=== PATIENT | male | born 1975 | race Caucasian/White ===

== ENCOUNTER 2018-01-05 02:58 | Observation (INO) | payer MEDICAID ==
[~2018-01-05] VITALS: Ht 190.5 cm; Wt 113.0 kg
[2018-01-05] MEDS ORDERED: SODIUM CHLORIDE FLUSH 10ML SYR IVF ONE (03:30)
[2018-01-05] MEDS ORDERED: ASPIRIN 81 MG TABLET CHEW PO ONE (03:30)
[2018-01-05] MEDS ORDERED: MORPHINE SULFATE 4 MG/ML, 1ML IVPush PRN (03:30)
[2018-01-05] MEDS ORDERED: MORPHINE SULFATE 4 MG/ML, 1ML ONE (03:32)
[2018-01-05] MEDS ORDERED: ASPIRIN 81 MG TABLET CHEW ONE (03:32)
[2018-01-05 03:42] LABS: ALANINE AMINOTRANSFERASE 46 U/L (12-78); ALBUMIN 3.6 g/dL (3.4-5.0); ANION GAP 6 mmol/L (5-15); BASOPHILS # (AUTO) 0.01 x10^3/uL (0-0.1); BASOPHILS % (AUTO) 0 % (0-1); CALCIUM 8.3 mg/dL (8.5-10.1); CHLORIDE 111 mmol/L (98-107); CREATININE 1.28 mg/dL (0.7-1.3); EOSINOPHILS # (AUTO) 0.05 x10^3/uL (0-0.4); EOSINOPHILS % (AUTO) 1 % (1-7); LYMPHOCYTES # (AUTO) 1.44 x10^3/uL (1-3.4); LYMPHOCYTES % (AUTO) 32 % (22-44); MD NO; MEAN CORPUSCULAR HEMOGLOBIN 29.8 pg (27.5-34.5); MEAN CORPUSCULAR HGB CONC 34.1 g/dL (33.2-36.2); MEAN CORPUSCULAR VOLUME 87.2 fL (81-97); MEAN PLATELET VOLUME 8.4 fL (7.4-10.4); MONOCYTES # (AUTO) 0.38 x10^3/uL (0.2-0.8); MONOCYTES % (AUTO) 9 % (2-9); NEUTROPHILS # (AUTO) 2.56 x10^3/uL (1.8-6.8); NEUTROPHILS % (AUTO) 58 % (42-75); PLATELET COUNT 172 x10^3/uL (130-400); RED BLOOD COUNT 5.06 x10^6/uL (4.38-5.82); RED CELL DISTRIBUTION WIDTH 13.6 % (9.4-14.8)
[2018-01-05 03:47] LABS: ALKALINE PHOSPHATASE 84 U/L (45-117); BILIRUBIN,TOTAL 0.5 mg/dL (0.2-1.0); TOTAL PROTEIN 7.1 g/dL (6.4-8.2); TROPONIN I < 0.015 ng/mL (0.000-0.045)
[2018-01-05 04:14] LABS: INTERNATIONAL NORMALIZED RATIO 1.05 (0.93-1.1); PARTIAL THROMBOPLASTIN TIME 26 Seconds (25-31); PROTHROMBIN TIME 10.8 Seconds (9.6-11.5)
[2018-01-05 04:15] LABS: D-DIMER < 0.19 ug/mlFEU (0.00-0.52)
[2018-01-05] MEDS ORDERED: NITROGLYCERIN SINGLE TAB 0.4 MG SL ONE (06:26)
[2018-01-05] MEDS ORDERED: NICOTINE 14MG/24 HR PATCH.TD24 TD SCH (06:30)
[2018-01-05] MEDS ORDERED: ONDANSETRON ODT 4 MG PO PRN (06:30)
[2018-01-05] MEDS ORDERED: ONDANSETRON 2MG/ML, 2ML IVPush PRN (06:30)
[2018-01-05] MEDS ORDERED: GUAIFENESIN/DM 200-20MG, 10ML UDC PO PRN (06:30)
[2018-01-05] MEDS ORDERED: NITROGLYCERIN 0.4 MG/SPRAY SL PRN (06:30)
[2018-01-05] MEDS ORDERED: LABETALOL 5MG/ML, 20ML IVPush PRN (06:30)
[2018-01-05 07:29] VITALS: BP 115/77
[2018-01-05 07:34] LABS: CHOL/HDL RATIO 6.1; CHOLESTEROL, TOTAL 188 mg/dL (140-239); HDL CHOL % 16 % (26-37); HDL CHOLESTEROL (DIRECT) 31 mg/dL (40-60); LDL CHOLESTEROL,CALCULATED 126 mg/dL (54-169); LDL/HDL RATIO 4.1 (0.5-3.0); TRIGLYCERIDES 155 mg/dL (50-200); TROPONIN I < 0.015 ng/mL (0.000-0.045); VLDL CHOLESTEROL 31 mg/dL (0-25)
[2018-01-05] MEDS: morphine SULFATE 10 MG/ML, 1ML IVPush PRN ×2 (07:57→12:41)
[2018-01-05] MEDS ORDERED: REGADENOSON 0.4 MG/5 ML SYRINGE ONE (08:14)
[2018-01-05 14:17] VITALS: BP 121/73
[2018-01-05] MEDS ORDERED: KETOROLAC 30 MG/1 ML IVPush ONE (15:30)
== END 2018-01-05 18:56 | disposition home or self-care (01) ==
LOC: ED 05:26 → INTOOBSV 06:00 → EDIP 06:00 → 5SO 07:14
PROVIDERS: ADMIT Internal Medicine; ATTEND Hospitalist
DX: I44.0 Atrioventricular block, first degree (principal); R07.89 Other chest pain; R05 Cough; F17.210 Nicotine dependence, cigarettes, uncomplicated; J98.11 Atelectasis; I10 Essential (primary) hypertension; Z79.82 Long term (current) use of aspirin
CPT/HCPCS: 36415; 71045; 78452; 80053; 80061; 83690; 84484; 85025; 85379; 85610; 85730; 93005; 93017; 96374; 96375; 96376; 99285; A9502; C9898; G0378; J1885; J2270; J2785